=== PATIENT | male | born 1990 | race Caucasian/White ===

== ENCOUNTER 2023-04-12 17:44 | Emergency (ER) | payer OTHER ==
[2023-04-12] MEDS ORDERED: Losartan 50 MG Tab PO ONE ×2 (17:45→17:51)
== END 2023-04-12 18:17 ==
LOC: DL.ED 17:44
DX: F10.920 Alcohol use, unspecified with intoxication, uncomplicated (principal); I10 Essential (primary) hypertension; Z88.1 Allergy status to other antibiotic agents
CPT/HCPCS: 99282; 99284; A9270